=== PATIENT | male | born 1955 | race African-American/Black ===

== ENCOUNTER 2017-01-02 07:56 | Emergency (ER) | payer MEDICARE, MEDICAID ==
[~2017-01-02] VITALS: Ht 180.3 cm; Wt 93.0 kg
[~2017-01-02 07:56] MED LIST: ACET-3161; [UNRECOGNIZED DRUG - REMARK]; lisinopril; morphine; neurontin; nitro; vicodin
[2017-01-02] MEDS ORDERED: ASPIRIN 81MG TABLET PO ONE (08:15)
[2017-01-02 08:31] LABS: BASOPHILS % 1.4 % (0.0-2.0); EOSINOPHILS % 3.4 % (0.0-5.0); HEMOGLOBIN. 13.8 g/dL (14.0-18.0); MONOCYTES % 6.6 % (2.0-8.0); NEUTROPHILS % 60.6 % (40.0-76.0); PLATELET 267 x1000/uL (130-400); RED CELL DISTRIBUTION WIDTH 13.7 % (11.6-14.6)
[2017-01-02 08:43] LABS: PROTHROMBIN TIME 10.2 sec (9.4-11.6)
[2017-01-02 08:49] LABS: CARBON DIOXIDE 25 mEq/L (21-32); CHLORIDE 108 mEq/L (98-107); TROPONIN I < 0.02 ng/mL (0.00-0.04)
[2017-01-02 09:57] VITALS: BP 121/72
[2017-01-02] MEDS ORDERED: SODIUM CHLORIDE 0.9% 1,000 ML IV ONE (10:00)
[2017-01-02 13:30] LABS: T4 FREE 0.78 ng/dL (0.76-1.46)
== END 2017-01-02 10:16 | disposition home or self-care (01) ==
LOC: ER 08:07
DX: N28.9 Disorder of kidney and ureter, unspecified (principal); E87.6 Hypokalemia; R55 Syncope and collapse; R07.89 Other chest pain; I10 Essential (primary) hypertension; F17.200 Nicotine dependence, unspecified, uncomplicated; Z71.6 Tobacco abuse counseling
CPT/HCPCS: 36415; 71010; 80053; 83880; 84439; 84443; 84484; 85025; 85610; 93005; 96360; 99285; 99406; J7030